=== PATIENT | female | born 1995 | race American Indian/Alaskan Native ===

== ENCOUNTER 2020-02-28 17:49 | Outpatient (CLI) | payer MEDICAID ==
[2020-02-28 18:14] VITALS: BP 119/67
[2020-02-28] MEDS ORDERED: LACTATED RINGERS 500 ML IV ONE (18:24)
[2020-02-28] MEDS ORDERED: LACTATED RINGERS 1,000 ML ONE (18:28)
[2020-02-28] MEDS ORDERED: FLUCONAZOLE 100 MG TAB PO ONE (19:19)
[2020-02-28] MEDS ORDERED: FLUCONAZOLE 200 MG TAB PO ONE (20:00)
== END 2020-02-28 19:46 | disposition home or self-care (01) ==
LOC: TRG 17:49 → APU 17:50 → TRG 19:46
PROVIDERS: ATTEND Obstetrics & Gynecology
DX: O47.03 False labor before 37 completed weeks of gestation, third trimester (principal); Z3A.36 36 weeks gestation of pregnancy
CPT/HCPCS: 59025; J7120

== ENCOUNTER 2020-03-01 22:05 | Outpatient (CLI) | payer MEDICAID ==
[2020-03-01 23:03] VITALS: BP 114/65
[2020-03-01] MEDS ORDERED: LACTATED RINGERS 1,000 ML IV ONE (23:06)
== END 2020-03-02 00:57 | disposition home or self-care (01) ==
LOC: TRG 22:05 → APU 22:16 → TRG 03-02 00:57
PROVIDERS: ATTEND Obstetrics & Gynecology
DX: O62.9 Abnormality of forces of labor, unspecified (principal); O26.893 Other specified pregnancy related conditions, third trimester; R51.9 Headache, unspecified; Z3A.37 37 weeks gestation of pregnancy
CPT/HCPCS: 59025; 96360; J7120

== ENCOUNTER 2020-03-03 05:08 | Outpatient (CLI) | payer MEDICAID ==
[2020-03-03 05:28] VITALS: BP 118/74
[2020-03-03] MEDS ORDERED: NIFEdipine*For Tocolysis only* 10 MG CAPSULE PO ONE (06:48)
[2020-03-03 08:45] LABS: Bilirubin,Urine NEG (Negative); Blood,Urine NEG (Negative); Color,Urine Yellow (Yellow); Mucus,Urine FEW /HPF; Protein,Urine <15 mg/dL mg/dL (Negative); Urobilinogen,Urine < 2.0 mg/dL (<2.0)
== END 2020-03-03 09:04 | disposition home or self-care (01) ==
LOC: TRG 05:08 → APU 05:18 → TRG 09:04
PROVIDERS: ATTEND Obstetrics & Gynecology
DX: O62.4 Hypertonic, incoordinate, and prolonged uterine contractions (principal); O26.893 Other specified pregnancy related conditions, third trimester; M54.5 Low back pain; Z3A.37 37 weeks gestation of pregnancy
CPT/HCPCS: 59025; 81001

== ENCOUNTER 2020-03-06 19:34 | Outpatient (CLI) | payer MEDICAID ==
[2020-03-06 19:55] VITALS: BP 113/68
[2020-03-06] MEDS ORDERED: LACTATED RINGERS 1,000 ML IV ONE (22:00)
== END 2020-03-06 21:45 | disposition home or self-care (01) ==
LOC: TRG 19:34 → APU 19:41 → TRG 21:45
PROVIDERS: ATTEND Obstetrics & Gynecology
DX: O62.4 Hypertonic, incoordinate, and prolonged uterine contractions (principal); Z3A.37 37 weeks gestation of pregnancy
CPT/HCPCS: 59025

== ENCOUNTER 2020-03-13 02:54 | Outpatient (CLI) | payer MEDICAID ==
[2020-03-13 03:13] VITALS: BP 123/75
== END 2020-03-13 04:10 | disposition home or self-care (01) ==
LOC: TRG 02:54 → APU 02:55 → TRG 04:10
PROVIDERS: ATTEND Obstetrics & Gynecology
DX: O47.1 False labor at or after 37 completed weeks of gestation (principal); Z3A.38 38 weeks gestation of pregnancy
CPT/HCPCS: 59025